=== PATIENT | female | born 2000 | race African-American/Black ===

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

== ENCOUNTER 2024-06-30 20:22 | Emergency (ER) | payer MEDICAID ==
[2024-06-30] MEDS ORDERED: Acetaminophen 500 MG TAB ONE (22:06)
[2024-06-30 23:00] LABS: Bilirubin Negative (Negative); Blood, Urine 1+ (Negative); CAUTI Indications for Culture Pregnancy; Clarity Turbid (Clear); Glucose, Urine (Dipstick) Normal (Negative); Ketone, Urine Trace mg/dL (Negative); Leukocyte 250 Leu/uL (Negative); Nitrite Negative (Negative); Protein, Urine (Dipstick) 20 mg/dL (Neg-Trace); Specific Gravity, Urine 1.021 (1.002-1.036); WBC/HPF 21-50 HPF (0-3)
[2024-06-30 23:01] LABS: Bacteria/HPF 2+ HPF (None Seen)
[2024-06-30 23:02] LABS: Urine Culture Reflex Yes Yes
== END 2024-06-30 23:31 | disposition home or self-care (01) ==
LOC: ERS 20:22
DX: O23.42 Unspecified infection of urinary tract in pregnancy, second trimester (principal); N39.0 Urinary tract infection, site not specified; Z3A.16 16 weeks gestation of pregnancy
CPT/HCPCS: 76805; 81001; 87077; 87086; 87186